=== PATIENT | male | born 1970 | race Two or more races ===

== ENCOUNTER 2020-06-19 10:05 | Emergency (ER) | payer OTHER ==
[~2020-06-19] VITALS: Ht 188 cm; Wt 112.5 kg
[2020-06-19] MEDS ORDERED: PREVACID30 MG PO (15:26)
[2020-06-19] MEDS ORDERED: PEPCID AC20 MG PO (15:26)
== END 2020-06-19 16:11 | disposition home or self-care (01) ==
LOC: ER 10:05
DX: K29.60 Other gastritis without bleeding (principal); R10.12 Left upper quadrant pain; Z03.818 Encounter for observation for suspected exposure to other biological agents ruled out

== ENCOUNTER 2021-03-30 13:55 | Outpatient (CLI) | payer OTHER ==
[~2021-03-30 13:55] MED LIST: PEPCID AC20 MG PO; PREVACID30 MG PO
== END 2021-03-30 14:06 | disposition home or self-care (01) ==
LOC: MRI 13:55
DX: M25.512 Pain in left shoulder (principal)
CPT/HCPCS: 73218

== ENCOUNTER 2021-09-28 15:59 | Emergency (ER) | payer OTHER ==
[~2021-09-28] VITALS: Ht 188 cm; Wt 105.7 kg
[2021-09-28] MEDS ORDERED: SEROQUEL400 MG PO (16:11)
[2021-09-28] MEDS ORDERED: KETO10TA2 PO (19:06)
[2021-09-28] MEDS ORDERED: CARAFATE1 GM PO (19:06)
[2021-09-28] MEDS ORDERED: NORFLEX100MG PO (19:06)
[2021-09-28] MEDS ORDERED: PEPCID AC20 MG PO (19:06)
== END 2021-09-28 19:11 | disposition home or self-care (01) ==
LOC: ER 15:59
DX: M79.89 Other specified soft tissue disorders (principal); Z53.29 Procedure and treatment not carried out because of patient's decision for other reasons; F41.9 Anxiety disorder, unspecified; M25.50 Pain in unspecified joint; K25.9 Gastric ulcer, unspecified as acute or chronic, without hemorrhage or perforation